=== PATIENT | male | born 1985 | race Caucasian/White ===

== ENCOUNTER 2018-03-26 03:39 | Emergency (ER) | payer SELFPAY ==
[2018-03-26] MEDS ORDERED: NS(*) 0.9% 1000 ML BAG 1,000 ML IV ONE (03:54)
[2018-03-26] MEDS ORDERED: HYDROMORPHONE HCL 1 MG/ML SYRINGE IVP ONE ×2 (03:55)
[2018-03-26] MEDS ORDERED: KETOROLAC 30 MG/ML VIAL IVP ONE (03:55)
[2018-03-26] MEDS ORDERED: ONDANSETRON 4 MG/2 ML VIAL IVP ONE (03:55)
--- NOTE | 2018-03-26 04:00 | ER Report ---
History and Physical Time Seen By MD: 03:46 Hx. of Stated Complaint: WOKE UP AROUND 12:30 FEELING LIKE CRAP. NAUSEA, HOT/COLD, SWEATY, RT SIDE PAIN, VOMITING HPI/ROS CHIEF COMPLAINT: Left flank pain, vomiting HISTORY OF PRESENT ILLNESS: 32-year-old male presents ambulatory to the ER complaining of sudden onset of severe left flank pain began about 12:30 AM. HEENT vomited just prior to arrival as he was traveling in the car. He notes severe left flank pain 04/03, radiating to his left lower quadrant. Patient denies REVIEW OF SYSTEMS: Respiratory: No cough, no dyspnea. Cardiovascular: No chest pain, no palpitations. Gastrointestinal: No vomiting, no abdominal pain. Musculoskeletal: No back pain. Allergies: Coded Allergies: No Known Drug Allergies (Unverified , 03/26/18) Home Meds Active Scripts Oxycodone Hcl/Acetaminophen (PERCOCET 5-325 MG TABLET) 1 Each Tablet, 1 EACH PO Q4-6H PRN for PAIN, #15 Prov:EDITH EDGAR DO 03/26/18 Tamsulosin Hcl (TAMSULOSIN HCL) 0.4 Mg Cap.er.24h, 0.4 MG PO QHS for ureteral relaxation, #10 CAP Prov:EDITH EDGAR DO 03/26/18 Ondansetron Hcl (ZOFRAN) 4 Mg Tablet, 4 MG PO Q6H PRN for NAUSEA/VOMITING, #12 Prov:EDITH EDGAR DO 03/26/18 Hx Substance Use Disorder: No Hx Alcohol Use: No Constitutional Vital Sign - Last 24 Hours 03/26/18 03/26/18 03/26/18 03/26/18 03:39 03:46 03:47 04:05 Temp 97.8 Pulse ??? 60 Resp 14 B/P (MAP) 129/78 129/78 (95) 119/58 (78) Pulse Ox 98 93 O2 Delivery Room Air 03/26/18 03/26/18 03/26/18 03/26/18 04:09 04:14 04:21 04:29 Pulse 55 69 64 Pulse Ox 85 96 97 O2 Flow Rate 2.0 03/26/18 03/26/18 03/26/18 03/26/18 04:30 04:44 04:59 05:00 Pulse ??? 58 B/P (MAP) 119/63 (81) 104/59 (74) Pulse Ox 97 98 03/26/18 03/26/18 03/26/18 03/26/18 05:05 05:20 05:30 05:35 Pulse 68 ??? 67 B/P (MAP) 101/55 (70) Pulse Ox 98 98 98 03/26/18 03/26/18 05:50 05:51 Pulse ??? 85 Resp 16 B/P (MAP) 131/82 (98) Pulse Ox 96 O2 Delivery Room Air Medical Decision Making Data Points Result Diagram: 03/26/18 0359 03/26/18 0359 Laboratory Hematology Test 03/26/18 03:44 03/26/18 03:59 Urine Color Yellow Urine Clarity Cloudy Urine pH 7.0 pH (4.8-9.5) Urine Specific [place] 1.018 Urine Protein 30 mg/dL (NEGATIVE) Urine Glucose (UA) Negative mg/dL (NEGATIVE) Urine Ketones Negative mg/dL (NEGATIVE) Urine Blood Large (NEGATIVE) Urine Nitrite Negative (NEGATIVE) Urine Bilirubin Negative (NEGATIVE) Urine Urobilinogen 2.0 mg/dL (0.2-1.9) Urine Leukocyte Esterase Trace (NEGATIVE) Urine RBC 1039 /HPF (0-2/HPF) Urine WBC 13 /HPF (0-5/HPF) Urine Squamous Epithelial Cells None /LPF (</=FEW) Urine Transitional Epithelial Cells Few /LPF (NONE-FEW) Urine Amorphous Crystals Few /HPF Urine Bacteria Negative /HPF (NONE-FEW) Urine Hyaline Casts Few /LPF (NONE-FEW) Urine Mucus Few /HPF (NONE-FEW) Red Blood Count 4.64 M/uL (4.00-5.60) Mean Corpuscular Volume 89.3 fL (80.0-96.0) Mean Corpuscular Hemoglobin 31.2 pg (26.0-33.0) Mean Corpuscular Hemoglobin Concent 34.9 g/dL (32.0-36.0) Red Cell Distribution Width 13.3 % (11.5-14.5) Mean Platelet Volume 7.6 fL (7.2-11.1) Neutrophils (%) (Auto) 82.9 % (39.4-72.5) Lymphocytes (%) (Auto) 12.0 % (17.6-49.6) Monocytes (%) (Auto) 4.4 % (4.1-12.4) Eosinophils (%) (Auto) 0.5 % (0.4-6.7) Basophils (%) (Auto) 0.2 % (0.3-1.4) Nucleated RBC Relative Count (auto) 0.0 /100WBC Neutrophils # (Auto) 10.6 K/uL (2.0-7.4) Lymphocytes # (Auto) 1.5 K/uL (1.3-3.6) Monocytes # (Auto) 0.6 K/uL (0.3-1.0) Eosinophils # (Auto) 0.1 K/uL (0.0-0.5) Basophils # (Auto) 0.0 K/uL (0.0-0.1) Nucleated RBC Absolute Count (auto) 0.00 K/uL Sodium Level 141 mmol/L (137-145) Potassium Level 3.7 mmol/L (3.5-5.0) Chloride Level 104 mmol/L (98-107) Carbon Dioxide Level 25 mmol/L (22-30) Blood Urea Nitrogen 9 mg/dl (9-21) Creatinine 0.90 mg/dl (0.66-1.25) Glomerular Filtration Rate Calc > 60.0 Random Glucose 167 mg/dl (75-110) Calcium Level 9.4 mg/dl (8.4-10.2) Total Bilirubin 0.4 mg/dl (0.2-1.3) Aspartate Amino Transf (AST/SGOT) 36 U/L (0-35) Alanine Aminotransferase (ALT/SGPT) 42 U/L (0-56) Alkaline Phosphatase 51 U/L (0-126) Total Protein 7.0 g/dl (6.3-8.2) Albumin 4.5 g/dl (3.5-5.0) Amylase Level 76 U/L (0-110) Lipase 129 U/L (23-300) Chemistry Test 03/26/18 03:44 03/26/18 03:59 Urine Color Yellow Urine Clarity Cloudy Urine pH 7.0 pH (4.8-9.5) Urine Specific [place] 1.018 Urine Protein 30 mg/dL (NEGATIVE) Urine Glucose (UA) Negative mg/dL (NEGATIVE) Urine Ketones Negative mg/dL (NEGATIVE) Urine Blood Large (NEGATIVE) Urine Nitrite Negative (NEGATIVE) Urine Bilirubin Negative (NEGATIVE) Urine Urobilinogen 2.0 mg/dL (0.2-1.9) Urine Leukocyte Esterase Trace (NEGATIVE) Urine RBC 1039 /HPF (0-2/HPF) Urine WBC 13 /HPF (0-5/HPF) Urine Squamous Epithelial Cells None /LPF (</=FEW) Urine Transitional Epithelial Cells Few /LPF (NONE-FEW) Urine Amorphous Crystals Few /HPF Urine Bacteria Negative /HPF (NONE-FEW) Urine Hyaline Casts Few /LPF (NONE-FEW) Urine Mucus Few /HPF (NONE-FEW) White Blood Count 12.7 k/uL (4.5-11.0) Red Blood Count 4.64 M/uL (4.00-5.60) Hemoglobin 14.5 g/dL (14.0-18.0) Hematocrit 41.4 % (42.0-52.0) Mean Corpuscular Volume 89.3 fL (80.0-96.0) Mean Corpuscular Hemoglobin 31.2 pg (26.0-33.0) Mean Corpuscular Hemoglobin Concent 34.9 g/dL (32.0-36.0) Red Cell Distribution Width 13.3 % (11.5-14.5) Platelet Count 238 K/uL (150-450) Mean Platelet Volume 7.6 fL (7.2-11.1) Neutrophils (%) (Auto) 82.9 % (39.4-72.5) Lymphocytes (%) (Auto) 12.0 % (17.6-49.6) Monocytes (%) (Auto) 4.4 % (4.1-12.4) Eosinophils (%) (Auto) 0.5 % (0.4-6.7) Basophils (%) (Auto) 0.2 % (0.3-1.4) Nucleated RBC Relative Count (auto) 0.0 /100WBC Neutrophils # (Auto) 10.6 K/uL (2.0-7.4) Lymphocytes # (Auto) 1.5 K/uL (1.3-3.6) Monocytes # (Auto) 0.6 K/uL (0.3-1.0) Eosinophils # (Auto) 0.1 K/uL (0.0-0.5) Basophils # (Auto) 0.0 K/uL (0.0-0.1) Nucleated RBC Absolute Count (auto) 0.00 K/uL Glomerular Filtration Rate Calc > 60.0 Calcium Level 9.4 mg/dl (8.4-10.2) Total Bilirubin 0.4 mg/dl (0.2-1.3) Aspartate Amino Transf (AST/SGOT) 36 U/L (0-35) Alanine Aminotransferase (ALT/SGPT) 42 U/L (0-56) Alkaline Phosphatase 51 U/L (0-126) Total Protein 7.0 g/dl (6.3-8.2) Albumin 4.5 g/dl (3.5-5.0) Amylase Level 76 U/L (0-110) Lipase 129 U/L (23-300) Urinalysis Test 03/26/18 03:44 Urine Color Yellow Urine Clarity Cloudy Urine pH 7.0 pH (4.8-9.5) Urine Specific [place] 1.018 Urine Protein 30 mg/dL (NEGATIVE) Urine Glucose (UA) Negative mg/dL (NEGATIVE) Urine Ketones Negative mg/dL (NEGATIVE) Urine Blood Large (NEGATIVE) Urine Nitrite Negative (NEGATIVE) Urine Bilirubin Negative (NEGATIVE) Urine Urobilinogen 2.0 mg/dL (0.2-1.9) Urine Leukocyte Esterase Trace (NEGATIVE) Urine RBC 1039 /HPF (0-2/HPF) Urine WBC 13 /HPF (0-5/HPF) Urine Squamous Epithelial Cells None /LPF (</=FEW) Urine Transitional Epithelial Cells Few /LPF (NONE-FEW) Urine Amorphous Crystals Few /HPF Urine Bacteria Negative /HPF (NONE-FEW) Urine Hyaline Casts Few /LPF (NONE-FEW) Urine Mucus Few /HPF (NONE-FEW) EKG/Imaging Imaging Results: CT scan of the abdomen and pelvis without contrast was obtained. The results of the study are COMPUTED TOMOGRAPHY ABDOMEN AND PELVIS WITHOUT INTRAVENOUS CONTRAST DATE OF EXAM: 03/26/2018 4:46 AM INDICATION: Left flank pain, microhematuria. COMPARISON: None. TECHNIQUE: Noncontrast abdomen and pelvis CT performed. Sagittal and coronal reconstructions were performed. One of the following dose optimization techniques was utilized in the performance of this exam: Automated exposure control; adjustment of the mA and/or kV according to the patient's size; or use of an iterative reconstruction technique. Specific details can be referenced in the facility's radiology CT exam operational policy. FINDINGS: Lung bases: Mild atelectasis. Liver: Normal. Gallbladder and bile ducts: Normal. Spleen: Normal. Pancreas: Normal. Adrenals: Normal. Kidneys, ureters and bladder: 4 mm calculus at the left ureterovesicular junction with mild hydronephrosis and hydroureter. Otherwise unremarkable. Retroperitoneum and aorta: Normal aorta. [place] para-aortic lymph nodes are likely reactive. GI tract, mesentery and peritoneum: No evidence of obstruction. No pneumatosis, pneumoperitoneum or free fluid. Normal appendix. Prostate and seminal vesicles: Normal. Bones and soft tissues: There are 2 cystic structures along the right aspect of the scrotum adjacent to the right testicle. The larger measures 18 x 13 mm on coronal image 22 series 4. Rightward curvature of the thoracolumbar spine. Moderate to severe discogenic degenerative disease at L3-4. IMPRESSION: 1. 4 mm calculus at the left ureterovesicular junction with mild hydronephrosis and hydroureter. 2. Nonspecific cyst cystic structures along the right aspect of the scrotum adjacent to the right testicle. These could represent epididymal head cysts. Correlate with exam. The study was read by the radiologist. I viewed the images myself on the PACS system. ED Course/Re-evaluation Clinical Indication for ER IV: Hydration, IV Access ED Course Patient was minute to an examination room. H&P was done. The dental diagnoses was considered. On clinical examination. Patient has left flank pain consistent with kidney stone and renal colic. His urine has microscopic hematuria. He CT scan of the abdomen and pelvis without contrast is performed. He is a 4 mm stone at the UVJ. Hydronephrosis and hydroureter on the left. Patient's symptoms are much improved on IV medication. He'll be discharged home on Percocet, Zofran, Flomax and Motrin. A strainer and a urinal. Patient's advised to follow-up with urology if unimproved in 3-5 days. Decision to Disposition Date: Mar 26, 2018 Decision to Disposition Time: 04:40 Depart Departure Latest Vital Signs Vital Signs Date Time Temp Pulse Resp B/P (MAP) Pulse Ox O2 Delivery O2 Flow Rate FiO2 03/26/18 05:51 85 16 131/82 (98) 96 Room Air 03/26/18 04:21 2.0 03/26/18 03:46 97.8 Impression: Primary Impression: Renal colic on left side Condition: Improved Disposition: HOME OR SELF-CARE Referrals: MARIA GUADALUPE CROW MD,LUIS PABLO New Scripts Oxycodone Hcl/Acetaminophen (PERCOCET 5-325 MG TABLET) 1 Each Tablet 1 EACH PO Q4-6H PRN for PAIN, #15 Prov: EDITH EDGAR DO 03/26/18 Tamsulosin Hcl (TAMSULOSIN HCL) 0.4 Mg Cap.er.24h 0.4 MG PO QHS for ureteral relaxation, #10 CAP Prov: EDITH EDGAR DO 03/26/18 Ondansetron Hcl (ZOFRAN) 4 Mg Tablet 4 MG PO Q6H PRN for NAUSEA/VOMITING, #12 Prov: EDITH EDGAR DO 03/26/18 Patient Instructions: Kidney Stones (ED) Additional Instructions: Take ibuprofen 200 mg 3-4 tablets 3 times a day with food Drink plenty of fluids Strain all urine Follow-up with urologist if unimproved in 3-5 days. Return to the ER for any worsening EDITH EDGAR DO Mar 26, 2018 04:00
[2018-03-26 04:17] LABS: PLATELET COUNT, AUTOMATED 238 K/uL (150-450)
[2018-03-26] MEDS ORDERED: ONDA4TAB97 PO (04:44)
[2018-03-26] MEDS ORDERED: OXYC-865 PO (04:44)
[2018-03-26] MEDS ORDERED: TAMS0.4C70 PO (04:44)
--- NOTE | 2018-03-26 05:29 | RADIOLOGY IMAGING REPORT ---
FACILITY: [facility] - [place] PATIENT NAME: Bhavesh Nelson : 1985 MR: [id number] V: [id number] EXAM DATE: ORDERING PHYSICIAN: EDITH EDGAR TECHNOLOGIST: Location: [facility] [place] Patient: Bhavesh Nelson : 1985 Visit/Account:[id number] Date of Sevice: 03/26/2018 COMPUTED TOMOGRAPHY ABDOMEN AND PELVIS WITHOUT INTRAVENOUS CONTRAST DATE OF EXAM: 03/26/2018 4:46 AM INDICATION: Left flank pain, microhematuria. COMPARISON: None. TECHNIQUE: Noncontrast abdomen and pelvis CT performed. Sagittal and coronal reconstructions were pe rformed. One of the following dose optimization techniques was utilized in the performance of this e xam: Automated exposure control; adjustment of the mA and/or kV according to the patient's size; or u se of an iterative reconstruction technique. Specific details can be referenced in the facility's r adiology CT exam operational policy. FINDINGS: Lung bases: Mild atelectasis. Liver: Normal. Gallbladder and bile ducts: Normal. Spleen: Normal. Pancreas: Normal. Adrenals: Normal. Kidneys, ureters and bladder: 4 mm calculus at the left ureterovesicular junction with mild hydronep hrosis and hydroureter. Otherwise unremarkable. Retroperitoneum and aorta: Normal aorta. [place] para-aortic lymph nodes are likely reactive. GI tract, mesentery and peritoneum: No evidence of obstruction. No pneumatosis, pneumoperitoneum or free fluid. Normal appendix. Prostate and seminal vesicles: Normal. Bones and soft tissues: There are 2 cystic structures along the right aspect of the scrotum adjacent to the right testicle. The larger measures 18 x 13 mm on coronal image 22 series 4. Rightward curv ature of the thoracolumbar spine. Moderate to severe discogenic degenerative disease at L3-4. IMPRESSION: 1. 4 mm calculus at the left ureterovesicular junction with mild hydronephrosis and hydroureter. 2. Nonspecific cyst cystic structures along the right aspect of the scrotum adjacent to the right te sticle. These could represent epididymal head cysts. Correlate with exam. Report Dictated By: Jamal Padgett MD at 03/26/2018 5:13 AM Report E-Signed By: Jamal Padgett MD at 03/26/2018 5:26 AM WSN:[id number]
[2018-03-26] MEDS ORDERED: oxyCODONE/ACETAMIN 5/325MG TH 2 TAB/BOTTLE PO ONE (05:40)
[2018-03-26] MEDS ORDERED: ONDANSETRON 4 MG ODT TH SL ONE (05:40)
[2018-03-26 05:51] VITALS: BP 131/82
== END 2018-03-26 05:55 | disposition home or self-care (01) ==
LOC: ER 04:07
DX: N23 Unspecified renal colic (principal); N13.30 Unspecified hydronephrosis; N13.4 Hydroureter
CPT/HCPCS: 74176; 81001; 82150; 83690; 85025; 96361; 96374; 96375; 99284; J1170; J1885; J2405; J7030; 82040; 82247; 82310; 82374; 82435; 82565; 82947; 84075; 84132; 84155; 84295; 84450; 84460; 84520